=== PATIENT | male | born 1950 | race Caucasian/White ===

== ENCOUNTER 2022-07-04 10:41 | Inpatient (IN) | payer OTHER, BC ==
[2022-07-01 13:57] LABS: Absolute Lymphocytes (CBC) 1.6 K/uL (0.7-4.9); Hematocrit 45.7 % (39.6-49.0); Lymphocytes % 25.2 % (15.3-44.8); MCV 97.1 fL (80-100); MPV 8.7 fL (7.6-11.3); RBC Red Blood Cell Count 4.71 M/uL (4.33-5.43)
[2022-07-01 14:17] LABS: Protime INR 1.13
--- NOTE | 2022-07-01 14:18 | RAD REPORT ---
EXAM DESCRIPTION: Hannah Rey And Kristen (2 Views)07/01/2022 1:58 pm CLINICAL HISTORY: Preop cardiac catheterization COMPARISON: 2008 FINDINGS: The lungs appear clear of acute infiltrate. The heart is normal size IMPRESSION: No acute abnormalities displayed
[2022-07-01 14:19] LABS: Potassium 4.3 mmol/L (3.5-5.1)
[~2022-07-04 10:41] MED LIST: PANTOPRAZOLE 40MG TABLET PO SCH
[2022-07-04] MEDS ORDERED: NA CHLORIDE 0.9% 500 ML ONE (10:50)
[2022-07-04] MEDS ORDERED: FENTANYL CITR 100 MCG/2 ML ONE (10:55)
[2022-07-04] MEDS ORDERED: HEPA 1000U/500MLS 2,000 UNIT/1,000 ML BAG IV ONE (10:55)
[2022-07-04] MEDS ORDERED: LIDOCAINE 1% 20 ML MDV ONE (10:55)
[2022-07-04] MEDS ORDERED: ATROPINE SULF 1 MG/10 ML SYR IV ONE (10:56)
[2022-07-04] MEDS ORDERED: HEPARIN 10,000 UNIT/10 ML VIAL IV ONE (10:56)
[2022-07-04] MEDS ORDERED: HEPARIN 5000 UNIT/ML 1 ML VIAL ONE (10:56)
[2022-07-04] MEDS ORDERED: VERAPAMIL HCL 10 MG/4 ML VIAL IV ONE (10:56)
[2022-07-04] MEDS ORDERED: MIDAZOLAM HCL 2 MG/2 ML INJ ONE (10:56)
[2022-07-04] MEDS ORDERED: CLOPIDOGREL 75 MG TABLET ONE (12:18)
[2022-07-04] MEDS ORDERED: NITROGLYCERIN/D5W 50 MG/250 ML BTL IV ONE (12:45)
[2022-07-04] MEDS ORDERED: ASPIRIN 325 MG TAB ONE (12:56)
--- OUTSIDE RECORDS SUMMARY | 2022-07-04 15:43 | XMS REPORT | Continuity of Care Document ---
:1950 Author Organization [facility] t Address [address] [place] [address] Care Team Providers Name Role Phone LORRAINE RAY Primary Care Physician Unavailabl e LORRAINE RAY Attending Clinician Unavailable Problems Condition Condition Condition Status Onset Resolution Last Treating Co mments Source Name Details Category Date Date Treatment Clinician Date Thrombocyt Thrombocyt Disease [facility] [place] Pre-diabet Pre-diabet Disease Active [facility] [place] Hypertensi Hypertensi Disease Active [facility] [place] Depression Depression Disease Active [facility] [place] AAA AAA Disease Active [facility]abdominal [facility] aortic aortic 00:[facility]: Medical aneurysm) aneurysm) 00 [facility] er Obesity Obesity Disease Active [facility] [place] Fatigue Fatigue Disease Active [facility] [place] Immunity Immunity Disease [facility] testing testing [facility] 00 [place] Fatty Fatty Disease Active [facility] liver [facility] Allergies, Adverse Reactions, Alerts Allergy Allergy Status Severity Reaction(s) Onset Inactive Treating Comm ents Source Name Type Date Date Clinician NO KNOWN Allergy Active [facility] Family History Family Member Diagnosis Comments Start Date Stop Date Source Natural father Hypertension [facility] Natural mother Ovarian cancer [facility] Social History Social Habit Start Date Stop Date Quantity Comments Source Alcohol intake 2012-09-01 2012-09-[address] [facility] [address] [facility] 00:00:00 00:00:00 non-drinker of Medical Ce nter alcohol (finding) History of 1982-03-23 Current smoker [facility] tobacco use 00:00:00 [facility] Cent[facility] r Sex Assigned At [birth year] [employer] 00:00:00 00:00:00 Hospital Smoking Status Start Date Stop Date Source Former smoker [facility] Tobacco smoking consumption unknown [facility] Medications This patient has no known medications. Procedures This patient has no known procedures. Plan of Care Planned Activity Planned Date Details Comments Source Future Scheduled 2022-04-04 INFLUENZA VACCINE Method [facility] Test 04:10:04 [code = INFLUENZA VACCINE] Future Scheduled 2022-04-04 Hepatitis C screening [facility] Test 04:10:04 (procedure) [code = [id number]] Future Scheduled 2022-04-04 COLONOSCOPY SCREENING [facility] Test 04:10:04 [code = COLONOSCOPY SCREENING] Future Scheduled 2022-04-04 SHINGLES VACCINES (1 Met [facility] Test 04:10:04 of 2) [code = SHINGLES VACCINES (1 of 2)] Future Scheduled 2022-04-04 HEPATITIS B VACCINES Met [facility] Test 04:10:04 (1 of 3 - Risk 3-dose series) [code = HEPATITIS B VACCINES (1 of 3 - Risk 3-dose series)] Future Scheduled 2022-04-04 65+ PNEUMOCOCCAL Methodi [facility] Test 04:10:04 VACCINE (1 - PCV) [code = 65+ PNEUMOCOCCAL VACCINE (1 - PCV)] Future Scheduled 2022-04-04 COVID-19 VACCINE (3 - [facility] Test 04:10:04 Booster for Moderna series) [code = COVID-19 VACCINE (3 - Booster for Moderna series)] Encounters Start End Encounter Admission Attending Care Care Encounter Source Date/Time Date/Time Type Type Clinicians Facility Department ID 2021-04-19 2021-04-19 Outpatient [facility] [id number] [address] [place] [address] 00:00:00 00:00:00 LORRAINE [address] 2021-04-19 2021-04-19 Outpatient [facility] [id number] [address] 00:00:00 00:00:00 LORRAINE [address] Results This patient has no known results.
[2022-07-04] MEDS ORDERED: NITROGLYCERIN/D5W 50 MG/250 ML BTL IV SCH (16:47)
[2022-07-04] MEDS ORDERED: ACETAMINOPHEN 500 MG TAB PO PRN (16:54)
--- NOTE | 2022-07-04 18:35 | P.HP ---
Patient History Date of Service: 07/04/22 Reason for admission: CARDIAC CATH COMPLICATION History of Present Illness: PRETTY MOTA CAD DETECTED ON HEART SCAN WITH NO SYMPTOMS. HE HAD CATH TODAY BUT HAD SOME ISSUE WITH CARDIOVASCULAR STATUS NOT CLEAR BY WHAT RN EXPLAINED. DR. RICHARDSON WANTS TO HEPARANIZE HIM AND KEEP ON NTG DRIP UNTIL HE IS ABLE TO DO THE PROCEDURE AGAIN DAY AFTER TOMORROW. Allergies No Known Allergies Allergy (Verified 07/01/22 13:29) Review of Systems 10-point ROS is otherwise unremarkable General: Weakness Physical Examination - Vital Signs Blood Pressure: 109/55 Pulse: 75 Respirations: 14 Pulse Ox (%): 97 - Physical Exam General: Oriented x3, Mild distress, Obese HEENT: Atraumatic, PERRLA, Mucous membr. moist/pink, EOMI, Sclerae nonicteric Neck: Supple, 2+ carotid pulse no bruit, No LAD, Without JVD or thyroid abnormality Respiratory: Clear to auscultation bilaterally, Normal air movement Cardiovascular: Regular rate/rhythm, Normal S1 S2 Gastrointestinal: Normal bowel sounds, No tenderness Musculoskeletal: No tenderness Integumentary: No rashes Neurological: Normal gait, Normal speech, Normal strength at 5/5 x4 extr, Normal tone, Normal affect Lymphatics: No axilla or inguinal lymphadenopathy Assessment and Plan - Problems (Diagnosis) (1) Coronary artery disease Current Visit: Yes Status: Acute Plan: ABOVE PLAN PER . DR. DUMONT - Advance Directives Does patient have a Living Will: No Does patient have a Durable POA for Healthcare: No
[2022-07-04] MEDS: HEPARIN/D5W 25,000 UNIT/500 ML BAG IV PRN (19:39)
[2022-07-04] MEDS: ATORVASTATIN 40 MG TAB PO SCH (21:43)
[2022-07-05 04:24] LABS: Absolute Lymphocytes (CBC) 1.6 K/uL (0.7-4.9); Hematocrit 41.7 % (39.6-49.0); Lymphocytes % 26.3 % (15.3-44.8); MCV 97.2 fL (80-100); RBC Red Blood Cell Count 4.29 M/uL (4.33-5.43)
[2022-07-05 04:35] LABS: Potassium 3.7 mmol/L (3.5-5.1)
[2022-07-05] MEDS: ASPIRIN 81 MG CHEWABLE TABLET PO SCH (08:09)
[2022-07-05] MEDS: CLOPIDOGREL 75 MG TABLET PO SCH (08:09)
--- NOTE | 2022-07-05 12:02 | PN ---
Date of Progress Note: 07/05/2022 Subjective: Seen by bedside. No chest pain. Doing well. Review of Systems: No chest pain, shortness of breath, orthopnea, cough. No nausea, vomiting, diarrhea. No abdominal p ain. No dysuria, polyuria, or urinary urgency. No skin rash or headache. All other systems reviewe d and they were negative. Physical Examination: Vital Signs: Reviewed. Head and Neck: Pupils are equal, reactive to light. Intact eye movements. No JVD. No cervical lym phadenopathy. Neck is supple. Thyroid is not enlarged. Lungs: Clear to auscultation bilaterally. No rhonchi, wheezing, or crackles. No accessory muscle u se. Heart: Regular rate and rhythm. No extra sounds. Abdomen: Soft, nontender. Bowel sounds positive. No organomegaly. No masses or hernia. No rigidi ty or rebound. Extremities: No edema, clubbing, or cyanosis. Intact pulses. Skin: No rash. Neurologic: Alert, awake, oriented x3. No acute focal deficits appreciated. Investigation: Labs were reviewed. Assessment And Recommendations: 1.Severe coronary artery disease, status post successful percutaneous coronary intervention of the m id RCA. Plan for staged percutaneous coronary intervention of severe distal RCA on . Meanwh ile, continue IV heparin, baby aspirin and Plavix. 2.Dyslipidemia. Continue statins. SR/MODL Voice ID: [id number] Report ID: [id number]
--- NOTE | 2022-07-05 14:53 | CON ---
Date of Consultation: 07/04/2022 History Of Present Illness: This is a 71-year-old male, status post coronary angiogram and PCI of mi d RCA. He has severe distal RCA stenosis, heavily calcified. They could not cross yesterday and pro cedure was stopped due to the diminished blood flow in the coronary artery to allow some healing afte r stenting the proximal portion of the RCA. Planning to revisit in 48-72 hours. Denies having any c hest pain. No nausea, vomiting, diarrhea. No dysuria, polyuria, or urinary urgency. All other syst ems reviewed and they were all negative. Past Medical History: Coronary artery disease, hypertension, dyslipidemia. Medications: Refer to reconciliation sheet for detailed list. Allergies: NO KNOWN DRUG ALLERGIES. Family History: No premature coronary artery disease or cancer. Social History: Does not smoke or drink. Does not use any drugs. Review of Systems: All systems reviewed and they were negative except what mentioned in HPI. Physical Examination: Vital Signs: Reviewed. Head and Neck: Pupils are equal, reactive to light. Intact eye movements. No JVD. No cervical lym phadenopathy. Neck is supple. Thyroid is not enlarged. Lungs: Clear to auscultation bilaterally. No rhonchi, wheezing, or crackles. No accessory muscle u se. Heart: Regular rate and rhythm. No extra sounds. Abdomen: Soft, nontender. Bowel sounds positive. No organomegaly. No masses or hernia. No rigidi ty or rebound. Extremities: No edema, clubbing, or cyanosis. Intact pulses. Skin: No rash. Neurologic: Alert, awake, oriented x3. No acute focal deficits appreciated. Investigations: BUN 14, creatinine 1.4, hemoglobin 15.8. Assessment And Recommendations: 1.Coronary artery disease, status post PCI of mid RCA. Needs staged PCI of distal RCA, should be do ne on Monday or . At this point, continue IV heparin, baby aspirin and Plavix daily. 2.Dyslipidemia. Continue statin. 3.Hypertension. Blood pressure is controlled. SR/MODL Voice ID: [id number] Report ID: [id number]
--- NOTE | 2022-07-05 16:29 | OP ---
Date of Procedure: 07/04/2022 Surgeon: AURROA DUMONT Procedures Performed: 1.Selective coronary angiogram. 2.Left heart catheterization. 3.PCI of severe mid RCA stenosis, used 3.5 x 20 mm Synergy drug-eluting stent. Indication: Chest pain with abnormal stress test. Access: Right radial artery 6-Czech closed with TR band. Complications: None. Bleeding: Less than 10 mL. Anesthesia: Total sedation time was 50 minutes. Used fentanyl and Versed. Description Of Procedure: After risks, benefits, alternatives were explained, the patient agreed to procedure and signed informed consent. The patient was brought into the cardiac catheterization labo [facility], prepped and draped in the usual sterile fashion. Then, I accessed right radial artery using pediatric micropuncture kit, placed 6-Czech Slender sheath, took 5-Czech [place] 4.0 catheter into th e aortic root, engaged left main and right coronary artery, took standard views. Catheter was pushed over the wire into the LV, measured the LVEDP and pullback did not record any gradient and we gave s ystemic heparin to assure ACT level above , gave 600 mg of Plavix and 325 aspirin and then took a 6-Czech JR4 guide into the aortic root, engaged the RCA, took a Run-Through wire into the RCA , placed it distally, tried to get the balloons through the distal lesion and could not pass it, but the mid lesion was successfully dilated and placed a stent. ARYAN-2 flow was at the end of the proced ure, which was the same to the time prior to the procedure. At this time, I decided to stop, allow 2 4-48 hours on IV heparin and then we will re-attempt the PCI of distal RCA, so I removed the wire and the guide and the sheath, placed TR band with good hemostasis. Findings: 1.Left main is normal. 2.LAD; large vessel with proximal diffuse 40% stenosis. Diagonal 1 branch appears normal and then m id LAD has 40% to 50% stenosis, then distally diffuse 20% to 30% stenosis. 3.Left circumflex; proximal 40% stenosis and OM1 branch has proximal 50% stenosis. 4.RCA; large and dominant with proximal 40% stenosis, mid 80% stenosis, status post successful PCI, used 3.5 x 20 mm Synergy drug-eluting stent. Distally, it is 90% to 95% stenosis, heavily calcified. LVEDP is elevated at 40 mmHg. Conclusion: 1.Severe RCA stenosis, status post successful PCI of the mid RCA. Plan for staged PCI of distal RCA in 2 to 3 days. 2.Moderate coronary artery disease elsewhere. 3.Slightly elevated LVEDP. Recommendation: Admit, IV heparin, aspirin, Plavix, and revisit in 2 days. SR/MODL Voice ID: [id number] Report ID: [id number]
--- NOTE | 2022-07-05 17:32 | PN ---
Subjective: Mr. Coleman is doing well. Denies any chest pain, nausea, vomiting. Objective: General: He is a morbidly obese gentleman. Chest: Clear. Heart: Regular. Abdomen: No guarding, no rebound, rigidity. Vital Signs: Reviewed. Assessment And Plan: Coronary artery disease, multivessel disease. He had no symptoms. His heart s can score was high, which is why he was sent to caterer helper. It turns out he had a complication dur ing cardiac cath with cardiovascular event, possibly hypotension, which is why he is in ICU for stabi lization and now he will be going to the floor and , he will get angiogram again for stent placement. DENA/SNOWL Voice ID: [id number] Report ID: [id number]
[2022-07-05] MEDS: HEPARIN/D5W 25,000 UNIT/500 ML BAG IV PRN (17:57)
[2022-07-05] MEDS: ATORVASTATIN 40 MG TAB PO SCH (20:26)
[2022-07-06] MEDS: CLOPIDOGREL 75 MG TABLET PO SCH (08:08)
[2022-07-06] MEDS: PANTOPRAZOLE 40MG TABLET PO SCH (08:08)
[2022-07-06] MEDS: ASPIRIN 81 MG CHEWABLE TABLET PO SCH (08:08)
[2022-07-06] MEDS ORDERED: ATORVASTATIN 40 MG TAB PO SCH (09:00)
[2022-07-06] MEDS: HEPARIN/D5W 25,000 UNIT/500 ML BAG IV PRN (20:11)
[2022-07-06] MEDS: ATORVASTATIN 40 MG TAB PO SCH (20:11)
--- NOTE | 2022-07-06 20:31 | P.PN ---
Subjective Date of Service: 07/06/22 Chief Complaint: CARDIAC CATH COMPLICATION Subjective: Improving STABLE. NO PAIN, NO FEVER. NO DYSPNEA. Physical Examination - Vital Signs Temperature: 97.4 F Blood Pressure: 120/73 Pulse: 74 Respirations: 14 Pulse Ox (%): 96 - Physical Exam General: In no apparent distress, Obese HEENT: Atraumatic, PERRLA, EOMI Neck: Supple, JVD not distended Respiratory: Clear to auscultation bilaterally, Normal air movement Cardiovascular: Regular rate/rhythm, Normal S1 S2 Gastrointestinal: Normal bowel sounds, No tenderness Musculoskeletal: No tenderness Integumentary: No rashes Neurological: Normal speech, Normal tone, Normal affect Lymphatics: No axilla or inguinal lymphadenopathy - Studies Laboratory Data (last 24 hrs) 07/06/22 05:12: APTT 69.7 H Medications List Reviewed: Yes Assessment And Plan - Current Problems (Diagnosis) (1) Coronary artery disease Current Visit: Yes Status: Acute Plan: ABOVE PLAN PER . DR. DUMONT CATH IN AM STENT POSSIBLE. RCA.
[2022-07-07] MEDS: ASPIRIN 81 MG CHEWABLE TABLET PO SCH (06:15)
[2022-07-07] MEDS: CLOPIDOGREL 75 MG TABLET PO SCH (06:15)
[2022-07-07] MEDS: PANTOPRAZOLE 40MG TABLET PO SCH (09:00)
[2022-07-07] MEDS ORDERED: NA CHLORIDE 0.9% 500 ML ONE (10:58)
[2022-07-07] MEDS ORDERED: LIDOCAINE 1% 20 ML MDV ONE (11:27)
[2022-07-07] MEDS ORDERED: HEPA 1000U/500MLS 2,000 UNIT/1,000 ML BAG IV ONE (11:27)
[2022-07-07] MEDS ORDERED: FENTANYL CITR 100 MCG/2 ML ONE (11:28)
[2022-07-07] MEDS ORDERED: MIDAZOLAM HCL 2 MG/2 ML INJ ONE (11:28)
[2022-07-07] MEDS ORDERED: HEPARIN 5000 UNIT/ML 1 ML VIAL ONE (11:28)
[2022-07-07] MEDS ORDERED: HEPARIN 10,000 UNIT/10 ML VIAL IV ONE (11:29)
[2022-07-07] MEDS ORDERED: VERAPAMIL HCL 10 MG/4 ML VIAL IV ONE (11:29)
[2022-07-07] MEDS: NA CHLORIDE 0.9% 1,000 ML IV SCH (16:43)
[2022-07-07 18:12] VITALS: BMI 39.1
[2022-07-07] MEDS: ATORVASTATIN 40 MG TAB PO SCH (21:12)
--- NOTE | 2022-07-07 21:20 | P.PN ---
Subjective Date of Service: 07/07/22 Chief Complaint: CARDIAC CATH COMPLICATION Subjective: Improving STABLE. NO PAIN, NO FEVER. NO DYSPNEA. DR. DUMONT CALLED. HE COULD PUT IN ONE STENT BUT HAS A VERY CALCIFIED PLAQUE AND NEEDS ATHERCTOMY THAT HE WILL DO IN [place]. DC HOME IN AM. Physical Examination - Vital Signs Temperature: 97.5 F Blood Pressure: 133/66 Pulse: 78 Respirations: 18 Pulse Ox (%): 96 - Physical Exam General: Alert, In no apparent distress, Obese HEENT: Atraumatic, PERRLA, EOMI Neck: Supple, JVD not distended Respiratory: Clear to auscultation bilaterally, Normal air movement Cardiovascular: Regular rate/rhythm, Normal S1 S2 Gastrointestinal: Normal bowel sounds, No tenderness Musculoskeletal: No tenderness Integumentary: No rashes Neurological: Normal speech, Normal tone, Normal affect Lymphatics: No axilla or inguinal lymphadenopathy - Studies Laboratory Data (last 24 hrs) 07/07/22 04:32: APTT 60.4 H Medications List Reviewed: Yes Assessment And Plan - Current Problems (Diagnosis) (1) Coronary artery disease Current Visit: Yes Status: Acute Plan: ABOVE PLAN PER . DR. DUMONT CATH IN AM STENT POSSIBLE. RCA. ABOVE.
[2022-07-08] MEDS: NA CHLORIDE 0.9% 1,000 ML IV SCH (05:33)
[2022-07-08] MEDS: CLOPIDOGREL 75 MG TABLET PO SCH (07:33)
[2022-07-08] MEDS: ASPIRIN 81 MG CHEWABLE TABLET PO SCH (07:33)
[2022-07-08] MEDS: PANTOPRAZOLE 40MG TABLET PO SCH (07:33)
[2022-07-08 10:48] VITALS: BP 136/62; TEMP 98.5; O2SAT 95
--- NOTE | 2022-07-08 15:32 | P.DS ---
Admission Date: 07/04/22 Discharge Date: 07/08/22 Disposition: ROUTINE DISCHARGE Discharge Condition: FAIR Reason for Admission: CARDIAC CATH COMPLICATION - Problems (1) Coronary artery disease Status: Acute Brief History of Present Illness: PRETTY MOTA CAD DETECTED ON HEART SCAN WITH NO SYMPTOMS. HE HAD CATH TODAY BUT HAD SOME ISSUE WITH CARDIOVASCULAR STATUS NOT CLEAR BY WHAT RN EXPLAINED. DR. RICHARDSON WANTS TO HEPARANIZE HIM AND KEEP ON NTG DRIP UNTIL HE IS ABLE TO DO THE PROCEDURE AGAIN DAY AFTER TOMORROW. Hospital Course: pretty has cad with rca stenosis and heavy calcification that will need atherectomy will be done by Dr. flores. He is stable to go home. Vital Signs/Physical Exam: Temp Pulse Resp BP Pulse Ox 98.5 F 80 18 136/62 95 07/08/22 08:00 07/08/22 08:00 07/08/22 08:00 07/08/22 08:00 07/08/22 08:00 Laboratory Data at Discharge: WBC 6.00 K/uL (4.3-10.9) 07/05/22 03:49 Hgb 14.5 g/dL (13.6-17.9) 07/05/22 03:49 Hct 41.7 % (39.6-49.0) 07/05/22 03:49 Plt Count 96 K/uL (152-406) L 07/05/22 03:49 PT 12.4 SECONDS (9.5-12.5) 07/01/22 13:45 INR 1.13 07/01/22 13:45 APTT 60.4 SECONDS (24.3-36.9) H 07/07/22 04:32 Sodium 142 mmol/L (136-145) 07/05/22 03:49 Potassium 3.7 mmol/L (3.5-5.1) 07/05/22 03:49 BUN 12 mg/dL (7-18) 07/05/22 03:49 Creatinine 0.93 mg/dL (0.70-1.30) 07/05/22 03:49 Glucose 153 mg/dL (74-106) H 07/05/22 03:49 Triglycerides 78 mg/dL (<150) 07/05/22 03:49 Cholesterol 137 mg/dL (<200) 07/05/22 03:49 HDL Cholesterol 48 mg/dL (40-60) 07/05/22 03:49 Cholesterol/HDL Ratio 2.85 07/05/22 03:49 Home Medications: Atorvastatin Calcium 40 mg PO DAILY 07/05/22 Pantoprazole [Protonix Tab*] 40 mg PO DAILY 07/05/22 lisinopriL [Lisinopril] 20 mg PO DAILY 07/05/22 Aspirin Chewable [Aspirin Chewable*] 81 mg PO DAILY tab.chew 07/08/22 Clopidogrel Bisulfate [Plavix] 75 mg PO DAILY 90 Days #90 07/08/22 New Medications: Clopidogrel Bisulfate [Plavix] 75 mg PO DAILY 90 Days #90 Followup: Parth Lozano MD [Primary Care Provider] - 1-2 Weeks (call to schedule an appointment) Bob Flores MD [ACTIVE - CAN ADMIT] - 1 Week (call tos chedule an appointment.)
== END 2022-07-08 09:03 | disposition home or self-care (01) | DRG 247 ==
LOC: PRE 10:41 → 3RD-ICU 12:50 → 4TH 07-05 13:34
PROVIDERS: ADMIT Internal Medicine; ATTEND Internal Medicine
PROC: 027034Z Dilation of Coronary Artery, One Artery with Drug-eluting Intraluminal Device, Percutaneous Approach (ICD-10-PCS; principal; 2022-07-04)
PROC: 4A023N7 Measurement of Cardiac Sampling and Pressure, Left Heart, Percutaneous Approach (ICD-10-PCS; 2022-07-04)
PROC: B2011ZZ Plain Radiography of Multiple Coronary Arteries using Low Osmolar Contrast (ICD-10-PCS; 2022-07-04)
DX: I25.10 Atherosclerotic heart disease of native coronary artery without angina pectoris (principal); E78.5 Hyperlipidemia, unspecified; I10 Essential (primary) hypertension; E66.01 Morbid (severe) obesity due to excess calories; Z68.39 Body mass index [BMI] 39.0-39.9, adult
CPT/HCPCS: 36415; 71046; 76937; 80048; 80061; 85025; 85347; 85610; 85730; 92920; 93458; C1725; C1893; C9600; J0461; J1644; J2001; J2250; J3010; J7030; J7040; Q9967

== ENCOUNTER 2024-07-12 03:02 | Emergency (ER) | payer OTHER, BC ==
[2024-07-12 03:44] LABS: Absolute Monocytes 1.7 K/uL (0.1-1.3); Absolute Neutrophil 12.8 K/uL (1.8-8.0); Basophils % 0.1 % (0-1.3); Hematocrit 36.7 % (39.6-49.0); Hemoglobin 12.5 g/dL (13.6-17.9); Lymphocytes % 6.4 % (15.3-44.8); MCH 34.9 pg (27.0-35.0); MCHC 34.2 g/dL (32.0-36.0); MPV 8.9 fL (7.6-11.3); Monocytes % 11.2 % (3.3-12.3); Neutrophils % 82.3 % (41.7-73.7); Platelets 152 thou/uL (152-406); Red Cell Distribution Width 14.6 % (12.1-15.2)
[2024-07-12] MEDS ORDERED: NA CHLORIDE 0.9% 1,000 ML ONE (04:04)
[2024-07-12 04:05] LABS: PT Prothrombin Time 15.6 SECONDS (9.4-12.5); Protime INR 1.49
[2024-07-12 04:11] LABS: Albumin 2.3 g/dL (3.4-5.0); Albumin/Globulin Ratio 0.8 (1.1-1.8); Anion Gap 8.4 mEq/L (5.0-15.0); Bilirubin Direct 0.8 mg/dL (0-0.2); Bilirubin Total 1.8 mg/dL (0.2-1.0); Magnesium 1.9 mg/dL (1.6-2.4); Potassium 4.4 mEq/L (3.5-5.1); Protein, Total 5.3 g/dL (6.4-8.2); Troponin High Sensitivity 7.8 pg/mL (<58.9)
[2024-07-12 04:41] LABS: C-Reactive Protein < 2.90 mg/L (<3.00)
--- NOTE | 2024-07-12 05:34 | RAD REPORT ---
EXAM DESCRIPTION: Chest Single View CLINICAL HISTORY: syncope COMPARISON: None TECHNIQUE: Single AP view of the chest. FINDINGS: Lung volumes adequate. Cardiac silhouette is normal in size. No pneumothorax. No large pleural effusion. No focal consolidation. No acute bony finding. IMPRESSION: No evidence of acute cardiopulmonary disease. Electronically signed by: Nancy Mccracken MD 07/12/2024 04:31 AM [employer] Z9 Due to temporary technical issues with the PACS/IntelliBatt reporting system, reports are being andie d by the in-house radiologist without review as a courtesy to ensure prompt reporting the interpreting radiologist is fully responsible for the content of the report. Transcribed Date/Time: 07/12/2024 5:34 AM
--- NOTE | 2024-07-12 05:39 | RAD REPORT ---
ADDENDUM #1 THIS REPORT CONTAINS FINDINGS THAT MAY BE CRITICAL TO PATIENT CARE: The findings were verbally discus sed via telephone conference with Dr. Yg Costa 5:30 AM central time July 12, 2024. The results were acknowledged and understood. Electronically signed by: Stephanie Bey MD 07/12/2024 05:34 AM [facility] V2 End of Addendum EXAM: CT Chest, Abdomen and Pelvis Without Intravenous Contrast CLINICAL HISTORY: The patient is 73 years old and is Male; Left chest wall pain. TECHNIQUE: Axial computed tomography images of the chest, abdomen and pelvis without intravenous co ntrast. Sagittal and coronal reformatted images were created and reviewed. This CT exam was performed using one or more of the following dose reduction techniques: automated exposure control, adjustment of the mA and/or kV according to patient size, and/or use of iterative reconstruction technique. COMPARISON: XR Chest 07/12/2024, 3:34:03 AM and US Abdomen 03/13/2023. FINDINGS: CHEST: Lungs: Unremarkable. No mass. No consolidation or ground glass opacities. Pleural space: Unremarkable. No significant effusion. No pneumothorax. Heart: Unremarkable. No cardiomegaly. No significant pericardial effusion. No significant c oronary artery calcifications. ABDOMEN: Liver: Scattered hypodense lesions in the liver too small to accurately characterize, largest 7 m m. Gallbladder and bile ducts: Cholecystectomy without biliary dilatation. Pancreas: Unremarkable. No ductal dilation. Spleen: Hyperdense fluid adjacent adjacent to the spleen highly suspicious for splenic injury/blo od. Adrenals: Unremarkable. No mass. Kidneys and ureters: Punctate left nephrolithiasis. No hydronephrosis. Stomach and bowel: Unremarkable. No obstruction. No mucosal thickening. PELVIS: Appendix: No findings to suggest acute appendicitis. Bladder: Unremarkable. No stones. Reproductive: Enlarged prostate gland. CHEST, ABDOMEN and PELVIS: Intraperitoneal space: Perihepatic free fluid. Free fluid in the bilateral paracolic gutters extending into the pelvis. No free air. Bones/joints: Old bilateral rib fractures. No definite acute fracture visualized. Old L1 compression fracture. Mid thoracic marginal and bridging osteophytes. No traumatic mal alignment. Bilateral SI joint ankylosis. Degenerative changes in the hips. No acute fracture in the pelvis or proximal femora. No disl ocation. No acute sternal fracture. Soft tissues: Unremarkable. Vasculature: Unremarkable. No aortic aneurysm. Lymph nodes: Unremarkable. No enlarged lymph nodes. IMPRESSION: 1. Hyperdense fluid adjacent adjacent to the spleen highly suspicious for splenic injury/blood. IV contrast CT abdomen and pelvis follow-up recommended. 2. No definite acute intrathoracic injury. 3. Additional non-emergent findings as above. Electronically signed by: Stephanie Bey MD 07/12/2024 05:29 AM [facility] V2 Due to temporary technical issues with the PACS/Options Away reporting system, reports are being andie d by the in-house radiologist without review as a courtesy to ensure prompt reporting the interpreting radiologist is fully responsible for the content of the report. Transcribed Date/Time: 07/12/2024 5:38 AM
--- NOTE | 2024-07-12 05:39 | RAD REPORT ---
EXAM: CT Head and Cervical Spine Without Intravenous Contrast CLINICAL HISTORY: The patient is 73 years old and is Male; Traumatic fall , syncope. TECHNIQUE: Axial computed tomography images of the head/brain and cervical spine without intravenou s contrast. Sagittal and coronal reformatted images were created and reviewed. This CT exam was performed using one or more of the following dose reduction techniques: automated exposure control, adjustment of the mA and/or kV according to patient size, and/or use of iterative reconstruction technique. COMPARISON: No relevant prior studies available. FINDINGS: Brain: Unremarkable. No hemorrhage. No significant white matter disease. No edema. Ventricles: Unremarkable. No ventriculomegaly. Skull: No acute fracture. Sinuses: Unremarkable as visualized. No acute sinusitis. Mastoid air cells: Unremarkable as visualized. No mastoid fluid. Vertebrae: No acute cervical spine fracture visualized. No traumatic malalignment. Mild degenerative facet arthropathy. Discs/spinal canal/neural foramina: No acute findings. No spinal canal stenosis. Soft tissues: Unremarkable. Pleural space: No apical pneumothorax. IMPRESSION: 1. No intracranial hemorrhage. No acute skull fracture. 2. No acute cervical spine fracture visualized. Electronically signed by: Stephanie Bey MD 07/12/2024 05:16 AM [facility] V2 Due to temporary technical issues with the PACS/brettapproved reporting system, reports are being andie d by the in-house radiologist without review as a courtesy to ensure prompt reporting the interpreting radiologist is fully responsible for the content of the report. Transcribed Date/Time: 07/12/2024 5:39 AM
--- NOTE | 2024-07-12 06:14 | EDPHYS ---
Physician Documentation [facility] Name: Raul Coleman Age: 73 yrs Sex: Male : 1950 Arrival Date: 07/12/2024 Time: 03:02 Bed 7 Private MD: ED Physician Yg Costa HPI: 07/12 03:12 This 73 yrs old Male presents to ER via Unassigned with complaints of Syncope.sp4 06:09 73-year-old male with past medical history of fatty liver disease and also coronary sp4 artery disease with 5 stents on Plavix, hypertensive disorder, chronic back pain, hyperlipidemia. Patient presents with EMS for complaint of acute syncopal episode at home. Patient states yesterday he fell onto the left side developing left flank pain. This morning patient syncopized at home was found laying on the floor.. 06:14 Patient takes Plavix. sp4 06:[address] Lozano, Cloth Brushing And Sueding Supervisor Dr. Flores . sp4 Historical: - Allergies: 03:16 No Known Allergies; dd2 - PMHx: 03:16 CAD; Hypertensive disorder; Chronic back pain; HLD; dd2 - PSHx: 03:16 CARDIAC STENTS X5; dd2 - Immunization history:: Adult Immunizations up to date. - Infectious Disease History:: Denies. - Social history:: Smoking status: Patient denies any tobacco usage or history of. - Family history:: not pertinent. ROS: 06:10 Constitutional: Negative for fever, chills, and weight loss, sp4 06:10 All other systems are negative, Exam: 06:10 Constitutional: This is a well developed, well nourished patient who is awake, alert, sp4 and in no acute distress. Head/Face: Normocephalic, atraumatic. Eyes: Pupils equal round and reactive to light, extra-ocular motions intact. Lids and lashes normal. Conjunctiva and sclera are not injected. Cornea within normal limits. Periorbital areas with no swelling, redness, or edema. ENT: Nares patent. No nasal discharge, no septal abnormalities noted. Tympanic membranes are normal and external auditory canals are clear. Oropharynx with no redness, swelling, or masses, exudates, or evidence of obstruction, uvula midline. Mucous membranes moist. Neck: Trachea midline, no thyromegaly or masses palpated, and no cervical lymphadenopathy. Supple, full range of motion without nuchal rigidity, or vertebral point tenderness. Chest/axilla: Normal chest wall appearance and motion. Nontender with no deformity. No lesions are appreciated. Cardiovascular: Regular rate and rhythm with a normal S1 and S2. No gallops, murmurs, or rubs. Normal PMI, no JVD. No pulse deficits. Respiratory: Lungs have equal breath sounds bilaterally, clear to auscultation and percussion. No rales, rhonchi or wheezes noted. No increased work of breathing, no retractions or nasal flaring. Abdomen/GI: Soft, with normal bowel sounds. No distension or tympany. No guarding or rebound. No evidence of tenderness throughout. Back: No spinal tenderness. No costovertebral tenderness. Skin: Warm, dry with normal turgor. Normal color with no rashes, no lesions, and no evidence of cellulitis. MS/ Extremity: Pulses equal, no cyanosis. Neurovascular intact. Full, normal range of motion. Neuro: Awake and alert, GCS 15, oriented to person, place, time, and situation. Cranial nerves II-XII grossly intact. Motor strength 5/5 in all extremities. Sensory grossly intact. Psych: Awake, alert, with orientation to person, place and time. Behavior, mood, and affect are within normal limits 06:10 ECG was reviewed by the Attending Physician. EKG 0 313 normal sinus rhythm rate 91, otherwise normal EKG. Vital Signs: 03:12 BP 143 / 72; Pulse 84; Resp 16; Temp 98.2; Pulse Ox 100% on R/A; Weight 110.68 kg (R); dd2 03:25 BP 119 / 80; Pulse 86; Resp 16; Pulse Ox 99% on R/A; dd2 04:30 BP 139 / 72; Pulse 78; Resp 17; Pulse Ox 100% on R/A; dd2 05:00 BP 128 / 69; Pulse 75; Resp 16; Pulse Ox 100% on R/A; dd2 06:00 BP 127 / 72; Pulse 80; Resp 17; Pulse Ox 100% on R/A; dd2 NIH Stroke Scale Scores: 03:12 NIHSS Score: 0 dd2 06:12 NIHSS Score: 0 sp4 Pretty Coma Score: 03:25 Eye Response: spontaneous(4). Motor Response: obeys commands(6). Verbal Response: dd2 oriented(5). Total: 15. 06:10 Eye Response: spontaneous(4). Motor Response: obeys commands(6). Verbal Response: sp4 oriented(5). Total: 15. MDM: 03:15 Medical Screening Exam initiated sp4 06:07 ED course: COMPARISON: XR Chest 07/12/2024, 3:34:03 AM and US Abdomen 03/13/2023. sp4 FINDINGS: CHEST: Lungs: Unremarkable. No mass. No consolidation or ground glass opacities. Pleural space: Unremarkable. No significant effusion. No pneumothorax. Heart: Unremarkable. No cardiomegaly. No significant pericardial effusion. No significant coronary artery calcifications. ABDOMEN: Liver: Scattered hypodense lesions in the liver too small to accurately characterize, largest 7 mm. Gallbladder and bile ducts: Cholecystectomy without biliary dilatation. Pancreas: Unremarkable. No ductal dilation. Spleen: Hyperdense fluid adjacent adjacent to the spleen highly suspicious for splenic injury/blood. Adrenals: Unremarkable. No mass. Kidneys and ureters: Punctate left nephrolithiasis. No hydronephrosis. Stomach and bowel: Unremarkable. No obstruction. No mucosal thickening. PELVIS: Appendix: No findings to suggest acute appendicitis. Bladder: Unremarkable. No stones. Reproductive: Enlarged prostate gland. CHEST, ABDOMEN and PELVIS: Intraperitoneal space: Perihepatic free fluid. Free fluid in the bilateral paracolic gutters extending into the pelvis. No free air. Bones/joints: Old bilateral rib fractures. No definite acute fracture visualized. Old L1 compression fracture. Mid thoracic marginal and bridging osteophytes. No traumatic malalignment. Bilateral SI joint ankylosis. Degenerative changes in the hips. No acute fracture in the pelvis or proximal femora. No dislocation. No acute sternal fracture. Soft tissues: Unremarkable. Vasculature: Unremarkable. No aortic aneurysm. Lymph nodes: Unremarkable. No enlarged lymph nodes. IMPRESSION: 1. Hyperdense fluid adjacent adjacent to the spleen highly suspicious for splenic injury/blood. IV contrast CT abdomen and pelvis follow-up recommended. 2. No definite acute intrathoracic injury. 3. Additional non-emergent findings as above. Electronically signed by: Stephanie Bey MD 07/12/2024 05:29 AM FITNESS LEADER RP. ED course: COMPARISON: No relevant prior studies available. FINDINGS: Brain: Unremarkable. No hemorrhage. No significant white matter disease. No edema. Ventricles: Unremarkable. No ventriculomegaly. Skull: No acute fracture. Sinuses: Unremarkable as visualized. No acute sinusitis. Mastoid air cells: Unremarkable as visualized. No mastoid fluid. Vertebrae: No acute cervical spine fracture visualized. No traumatic malalignment. Mild degenerative facet arthropathy. Discs/spinal canal/neural foramina: No acute findings. No spinal canal stenosis. Soft tissues: Unremarkable. Pleural space: No apical pneumothorax. IMPRESSION: 1. No intracranial hemorrhage. No acute skull fracture. 2. No acute cervical spine fracture visualized. . ED course: CLINICAL HISTORY: syncope COMPARISON: None TECHNIQUE: Single AP view of the chest. FINDINGS: Lung volumes adequate. Cardiac silhouette is normal in size. No pneumothorax. No large pleural effusion. No focal consolidation. No acute bony finding. IMPRESSION: No evidence of acute cardiopulmonary disease. . 06:11 Differential Diagnosis: aortic aneurysm, cardiac arrhythmia, cerebrovascular accident, sp4 drug effect, emotional response, GI bleed, idiopathic syncope, pseudo seizure. Data reviewed: vital signs, nurses notes, EMS record, old medical records, lab test result(s), EKG, radiologic studies, CT scan, plain films. Consideration of Admission/Observation Escalation of care including admission/observation considered. 07/12 03:13 Order name: Basic Metabolic Panel; Complete Time: 05:10 sp4 07/12 03:13 Order name: CBC with Diff; Complete Time: 05:10 sp4 07/12 03:13 Order name: LFT's; Complete Time: 05:10 sp4 07/12 03:13 Order name: Magnesium; Complete Time: 05:10 sp4 07/12 03:13 Order name: NT PRO-BNP; Complete Time: 05:10 sp4 07/12 03:13 Order name: PT-INR; Complete Time: 05:10 sp4 07/12 03:13 Order name: Troponin HS; Complete Time: 05:10 sp4 07/12 03:15 Order name: TSH; Complete Time: 05:10 sp4 07/12 03:15 Order name: CRP; Complete Time: 05:10 sp4 07/12 03:39 Order name: Glucose, Ancillary Testing; Complete Time: 05:10 EDLA 07/12 03:13 Order name: XRAY Chest (1 view); Complete Time: 05:46 sp4 07/12 03:14 Order name: CT Head C Spine; Complete Time: 05:46 sp4 07/12 03:14 Order name: CT Chest Abdomen Pelvis W/O Contrast; Complete Time: 05:46 sp4 07/12 03:13 Order name: Cardiac monitoring; Complete Time: 03: sp4 07/12 03:13 Order name: EKG - Nurse/Tech; Complete Time: 03: sp4 07/12 03:13 Order name: IV Saline Lock; Complete Time: 03: sp4 07/12 03:13 Order name: Labs collected and sent; Complete Time: : sp4 07/12 03:13 Order name: O2 Per Protocol; Complete Time: : sp4 07/12 03:13 Order name: O2 Sat Monitoring; Complete Time: : EC:13 Rate is 91 beats/min. Rhythm is regular, Normal Sinus Rhythm. QRS Candia is Normal. TN sp4 interval is normal. QRS interval is normal. QT interval is normal. No Q waves. T waves are Normal. No ST changes noted. Clinical impression: No evidence of ischemia. Interpreted by me. Reviewed by me. Administered Medications: 04:09 Drug: NS 0.9% IV 1000 ml IV at 125 ml/hr Per protocol; to be given as a bolus over 60 dd2 minutes Route: IV; Rate: 125 ml/hr; Site: right antecubital; 05:09 Follow up: Response: No adverse reaction; IV Status: Completed infusion; IV Intake: dd2 1000ml Point of Care Testing: Blood Glucose: 03:28 Blood Glucose: 220 mg/dL; dd2 Ranges: Critical Glucose Levels:Adult <50 mg/dl or >400 mg/dl <40 mg/dl or >180 mg/dl Disposition Summary: 07/12/24 06:14 Transfer Ordered Notes: Transfer Location: [facility]-System sp4 Reason: Higher level of care sp4 Condition: Stable sp4 Problem: new sp4 Symptoms: have improved sp4 Accepting Physician: [facility](07/12/24 07:15) ld1 Diagnosis - Acute splenic injury, acute perisplenic hematoma, new onset diabetes mellitus type sp4 2, hyperglycemia, ascites, transaminitis, hyperbilirubinemia, syncope and collapse Forms: - Medication Reconciliation Form sp4 - SBAR form sp4 NIH Stroke Scale - NIH Stroke Score Date: 07/12/2024 Time: 03:12 Total Score = 0 10. Dysarthria (speech clarity - read or repeat words) - 0(Normal) 11. Extinction and Inattention (visual/tactile/auditory/spatial/personal) - 0(No abnormality) 1a. Level of Consciousness (LOC) - 0(Alert) 1b. Level of Consciousness (LOC) (Month \T\ Age) - 0(Both) 1c. LOC Commands (Open \T\ Closes Eyes/Pie Chef) - 0(Both) 2. Best Gaze (Lateral Gaze Paresis) - 0(Normal) 3. Visual Field Loss - 0(No visual loss) 4. Facial Palsy - 0(Normal) 5a. Left Arm: Motor (10-second hold) - 0(No drift) 5b. Right Arm: Motor (10-second hold) - 0(No drift) 6a. Left Leg: Motor (5-second hold - always test supine) - 0(No drift) 6b. Right Leg: Motor (5-second hold - always test supine) - 0(No drift) 7. Limb Ataxia (finger/nose \T\ heel/ayon - test with eyes open) - 0(Absent) 8. Sensory Loss (pinprick arms/legs/face) - 0(Normal) 9. Best Language: Aphasia (description/naming/reading) - 0(No aphasia) Initials: dd2 NIH Stroke Scale - NIH Stroke Score Date: 07/12/2024 Time: 06:12 Total Score = 0 10. Dysarthria (speech clarity - read or repeat words) - 0(Normal) 11. Extinction and Inattention (visual/tactile/auditory/spatial/personal) - 0(No abnormality) 1a. Level of Consciousness (LOC) - 0(Alert) 1b. Level of Consciousness (LOC) (Month \T\ Age) - 0(Both) 1c. LOC Commands (Open \T\ Closes Eyes/Pie Chef) - 0(Both) 2. Best Gaze (Lateral Gaze Paresis) - 0(Normal) 3. Visual Field Loss - 0(No visual loss) 4. Facial Palsy - 0(Normal) 5a. Left Arm: Motor (10-second hold) - 0(No drift) 5b. Right Arm: Motor (10-second hold) - 0(No drift) 6a. Left Leg: Motor (5-second hold - always test supine) - 0(No drift) 6b. Right Leg: Motor (5-second hold - always test supine) - 0(No drift) 7. Limb Ataxia (finger/nose \T\ heel/ayon - test with eyes open) - 0(Absent) 8. Sensory Loss (pinprick arms/legs/face) - 0(Normal) 9. Best Language: Aphasia (description/naming/reading) - 0(No aphasia) Initials: sp4 Signatures: Dispatcher [employer] EDMS Buffy Canas RN RN ld1 Yg Costa MD MD sp4 GAURAV RUSH RN RN dd2 Corrections: (The following items were deleted from the chart) 03:14 03:14 Chest Single View+[id number] ordered. EDMS EDMS 07:15 06:14 [facility] sp4 ld1
--- NOTE | 2024-07-12 06:14 | ER ---
Nurse's Notes [facility] Name: Raul Coleman Age: 73 yrs Sex: Male : 1950 Arrival Date: 07/12/2024 Time: 03:02 Bed 7 Private MD: Diagnosis: Acute splenic injury, acute perisplenic hematoma, new onset diabetes mellitus type 2, hyperglycemia, ascites, transaminitis, hyperbilirubinemia, syncope and collapse Presentation: 07/12 03:12 Chief complaint: EMS states: TONED OUT FOR SYNCOPAL EPISODE. EMS REPORTS THAT PT STATED dd2 HE WAS GOING TO THE BATHROOM AND AT 0230 HEARD PT FALL AND WAS FOUND WITH A SHIRT IN HIS HAND SITTING IN THE FLOOR. Coronavirus screen: At this time, the client does not indicate any symptoms associated with coronavirus-19. Ebola Screen: No symptoms or risks identified at this time. Initial Sepsis Screen: Does the patient meet any 2 criteria? No. Patient's initial sepsis screen is negative. Does the patient have a suspected source of infection? No. Patient's initial sepsis screen is negative. Risk Assessment: Do you want to hurt yourself or someone else? Patient reports no desire to harm self or others. Onset of symptoms was July 12, 2024. 03:12 Method Of Arrival: EMS: [facility] dd2 03:12 Acuity: LUIS 3 dd2 03:16 Care prior to arrival: IV initiated. 20 GA, in the left hand, Glucose check: 230. dd2 Triage Assessment: 03:16 General: Appears in no apparent distress. uncomfortable, Behavior is calm, cooperative, dd2 appropriate for age. Pain: Complains of pain in LT RIBS Pain does not radiate. Pain currently is 4 out of 10 on a pain scale. EENT: No deficits noted. No signs and/or symptoms were reported regarding the EENT system. Neuro: Larsen Agitation-Sedation Scale (RASS): 0 - Alert and Calm Level of Consciousness is awake, alert, obeys commands, Oriented to person, place, time, situation, Appropriate for age Admitting Supervisor are equal bilaterally Moves all extremities. Speech is normal, Facial symmetry appears normal, Pupils are PERRLA, Intact Reports a syncopal episode. Cardiovascular: Denies chest pain, Patient's skin is warm and dry. Respiratory: Airway is patent Respiratory effort is even, unlabored, Respiratory pattern is regular, symmetrical, Breath sounds are clear bilaterally. GI: Abdomen is non-distended, obese, Abd is soft and non tender. GI: : No deficits noted. No signs and/or symptoms were reported regarding the genitourinary system. Derm: No deficits noted. No signs and/or symptoms reported regarding the dermatologic system. Musculoskeletal: No deficits noted. No signs and/or symptoms reported regarding the musculoskeletal system. Circulation, motion, and sensation intact. Range of motion: intact in all extremities. Historical: - Allergies: 03:16 No Known Allergies; dd2 - PMHx: 03:16 CAD; Hypertensive disorder; Chronic back pain; HLD; dd2 - PSHx: 03:16 CARDIAC STENTS X5; dd2 - Immunization history:: Adult Immunizations up to date. - Infectious Disease History:: Denies. - Social history:: Smoking status: Patient denies any tobacco usage or history of. - Family history:: not pertinent. Screenin:25 [facility] ED Fall Risk Assessment (Adult) History of falling in the last 3 months, dd2 including since admission Yes- physiologic fall (2 pts) Confusion or Disorientation No (0 pts) Intoxicated or Sedated No (0 pts) Impaired Gait No (0 pts) Mobility Assist Device Used No (0 pt) Altered Elimination No (0 pt) Score/Fall Risk Level 0 - 2 = Low Risk Oriented to surroundings, Maintained a safe environment, Educated pt \T\ family on fall prevention, incl call for assistance when getting out of bed, Assessed \T\ reinforced patient's understanding of fall precautions, Hourly rounding (assess needs \T\ fall precautionary measures) done. Abuse screen: Denies threats or abuse. Nutritional screening: No deficits noted. Tuberculosis screening: No symptoms or risk factors identified. Assessment: 03:25 Reassessment: SEE TRIAGE ASSESSMENT FOR FULL ASSESSMENT. dd2 06:48 Reassessment: REPORT CALLED TO [facility] ER. dd2 Vital Signs: 03:12 BP 143 / 72; Pulse 84; Resp 16; Temp 98.2; Pulse Ox 100% on R/A; Weight 110.68 kg (R); dd2 03:25 BP 119 / 80; Pulse 86; Resp 16; Pulse Ox 99% on R/A; dd2 04:30 BP 139 / 72; Pulse 78; Resp 17; Pulse Ox 100% on R/A; dd2 05:00 BP 128 / 69; Pulse 75; Resp 16; Pulse Ox 100% on R/A; dd2 06:00 BP 127 / 72; Pulse 80; Resp 17; Pulse Ox 100% on R/A; dd2 [place] Coma Score: 03:25 Eye Response: spontaneous(4). Motor Response: obeys commands(6). Verbal Response: dd2 oriented(5). Total: 15. 06:10 Eye Response: spontaneous(4). Motor Response: obeys commands(6). Verbal Response: sp4 oriented(5). Total: 15. NIH Stroke Scale Scores: 03:12 NIHSS Score: 0 dd2 06:12 NIHSS Score: 0 sp4 ED Course: 03:11 Patient arrived in ED. vk 03:11 GAURAV RUSH, RN is Primary Nurse. dd2 03:12 gY Costa MD is Attending Physician. sp4 03:16 Triage completed. dd2 03:16 Arm band placed on right wrist. dd2 03:25 Patient has correct armband on for positive identification. Bed in low position. Call dd2 light in reach. Side rails up X2. Client placed on continuous cardiac and pulse oximetry monitoring. NIBP monitoring applied. chef german on. Door closed. Noise minimized. Warm blanket given. Pillow given. Verbal reassurance given. 03:25 No provider procedures requiring assistance completed. EKG done, by ED staff, reviewed dd2 by Yg Costa MD. Maintain EMS IV. Dressing intact. Good blood return noted. Site clean \T\ dry. Gauge \T\ site: 20 G LT HAND. Flushed with 10 mL NS. Patient maintains SpO2 saturation greater than 95% on room air. 03:29 Basic Metabolic Panel Sent. dd2 03:29 CBC with Diff Sent. dd2 03:29 LFT's Sent. dd2 03:29 Magnesium Sent. dd2 03:29 NT PRO-BNP Sent. dd2 03:29 PT-INR Sent. dd2 03:29 Troponin HS Sent. dd2 03:29 Inserted saline lock: 20 gauge in right antecubital area, using aseptic technique. dd2 Blood collected. Flushed with 10 mL NS. 03:30 Initial lab(s) drawn, by ED staff, sent to lab. dd2 03:40 XRAY Chest (1 view) In Process Unspecified. EDMS 03:58 CT Head C Spine In Process Unspecified. EDMS 04:00 CT Chest Abdomen Pelvis W/O Contrast In Process Unspecified. EDMS 05:50 Initiated transfer with Johana at [facility]. rv1 06:00 Doc to Doc with Trauma at [facility]. rv1 06:07 administrative approval given by Johana Ann to Krista V / patient has been accepted eb to [facility] ED/ Dr. Barkley has accepted the patient in transfer/ report to be called to [phone]. 07:02 Patient transferred, IV remains in place. dd2 07:03 Provided Education on: TRANSFER EDUCATION. dd2 Administered Medications: 04:09 Drug: NS 0.9% IV 1000 ml IV at 125 ml/hr Per protocol; to be given as a bolus over 60 dd2 minutes Route: IV; Rate: 125 ml/hr; Site: right antecubital; 05:09 Follow up: Response: No adverse reaction; IV Status: Completed infusion; IV Intake: dd2 1000ml Medication: 03:25 VIS not applicable for this client. dd2 Point of Care Testing: Blood Glucose: 03:28 Blood Glucose: 220 mg/dL; dd2 Ranges: Intake: 05:09 IV: 1000ml; Total: 1000ml. dd2 Outcome: 06:14 ER care complete, transfer ordered by MD. de la torre 07:02 Transferred by ground EMS to [facility], Transfer form dd2 completed. 07:02 Condition: stable 07:02 Instructed on the need for transfer, Demonstrated understanding of instructions, 07:15 Patient left the ED. ld1 NIH Stroke Scale - NIH Stroke Score Date: 07/12/2024 Time: 03:12 Total Score = 0 10. Dysarthria (speech clarity - read or repeat words) - 0(Normal) 11. Extinction and Inattention (visual/tactile/auditory/spatial/personal) - 0(No abnormality) 1a. Level of Consciousness (LOC) - 0(Alert) 1b. Level of Consciousness (LOC) (Month \T\ Age) - 0(Both) 1c. LOC Commands (Open \T\ Closes Eyes/Garment Alteration Examiner) - 0(Both) 2. Best Gaze (Lateral Gaze Paresis) - 0(Normal) 3. Visual Field Loss - 0(No visual loss) 4. Facial Palsy - 0(Normal) 5a. Left Arm: Motor (10-second hold) - 0(No drift) 5b. Right Arm: Motor (10-second hold) - 0(No drift) 6a. Left Leg: Motor (5-second hold - always test supine) - 0(No drift) 6b. Right Leg: Motor (5-second hold - always test supine) - 0(No drift) 7. Limb Ataxia (finger/nose \T\ heel/ayon - test with eyes open) - 0(Absent) 8. Sensory Loss (pinprick arms/legs/face) - 0(Normal) 9. Best Language: Aphasia (description/naming/reading) - 0(No aphasia) Initials: dd2 NIH Stroke Scale - NIH Stroke Score Date: 07/12/2024 Time: 06:12 Total Score = 0 10. Dysarthria (speech clarity - read or repeat words) - 0(Normal) 11. Extinction and Inattention (visual/tactile/auditory/spatial/personal) - 0(No abnormality) 1a. Level of Consciousness (LOC) - 0(Alert) 1b. Level of Consciousness (LOC) (Month \T\ Age) - 0(Both) 1c. LOC Commands (Open \T\ Closes Eyes/Garment Alteration Examiner) - 0(Both) 2. Best Gaze (Lateral Gaze Paresis) - 0(Normal) 3. Visual Field Loss - 0(No visual loss) 4. Facial Palsy - 0(Normal) 5a. Left Arm: Motor (10-second hold) - 0(No drift) 5b. Right Arm: Motor (10-second hold) - 0(No drift) 6a. Left Leg: Motor (5-second hold - always test supine) - 0(No drift) 6b. Right Leg: Motor (5-second hold - always test supine) - 0(No drift) 7. Limb Ataxia (finger/nose \T\ heel/ayon - test with eyes open) - 0(Absent) 8. Sensory Loss (pinprick arms/legs/face) - 0(Normal) 9. Best Language: Aphasia (description/naming/reading) - 0(No aphasia) Initials: sp4 Signatures: Dispatcher [employer] EDMS Joycelyn Machado Lauren, CIRO RN ld1 Yahir, Micheline rv1 Yg Costa MD MD sp4 Kate Rodriguez DIANA, RN RN dd2
[2024-07-12 07:24] VITALS: TEMP 98.2
[2024-07-12 07:35] VITALS: O2SAT 100
[2024-07-12 07:45] VITALS: BP 128/69
== END 2024-07-12 07:15 | disposition short-term general hospital (02) ==
LOC: ER 03:02
DX: S36.00XA Unspecified injury of spleen, initial encounter (principal); S36.029A Unspecified contusion of spleen, initial encounter; R18.8 Other ascites; R74.01 Elevation of levels of liver transaminase levels; E80.6 Other disorders of bilirubin metabolism; E11.65 Type 2 diabetes mellitus with hyperglycemia; R55 Syncope and collapse; I10 Essential (primary) hypertension; Z95.818 Presence of other cardiac implants and grafts; Z79.01 Long term (current) use of anticoagulants
CPT/HCPCS: 93005; 85025; 80048; 36415; 83735; 85610; 82947; 80076; 84443; 84484; 83880; 86140; 70450; 71250; 72125; 74176; 71045; 96360; 99285; J7030

== ENCOUNTER 2024-10-10 13:18 | Observation (INO) | payer OTHER, BC ==
--- NOTE | 2024-10-10 16:21 | ER ---
Nurse's Notes [facility] Name: Raul Coleman Age: 73 yrs Sex: Male : 1950 Arrival Date: 10/10/2024 Time: 13:18 Bed Direct Admit Private MD: Diagnosis: Chest pain, unspecified ED Course: 10/10 13:20 Patient arrived in ED. sb4 13:20 Tonja Bledsoe PA-C is PHCP. sb4 13:20 Kartik Britton MD is Attending Physician. sb4 16:20 Parth Lozano MD is Hospitalizing Provider. jl7 Administered Medications: 13:24 CANCELLED (Physician Discretion): cathflo activase2 mg IV Thrombolytics once; into each sb4 catheter lumen, may repeat once Outcome: 16:20 Decision to Hospitalize by Provider. jl7 16:20 Patient left the ED. jl7 Signatures: Angel Christie RN RN jl7 Tonja Bledsoe PA-C PA-C sb4
[2024-10-10 17:36] LABS: PT Prothrombin Time 15.1 SECONDS (10-13.0); Protime INR 1.34
[2024-10-10 18:02] VITALS: O2SAT 100; BMI 35.6
[2024-10-10 18:05] LABS: Hemoglobin 13.4 g/dL (13.6-17.9); MCH 35.2 pg (27.0-35.0); MCHC 35.3 g/dL (32.0-36.0); MCV 99.7 fL (80-100); RBC Red Blood Cell Count 3.81 M/uL (4.33-5.43)
[2024-10-10 18:06] LABS: Absolute Eosinophils 0.1 K/uL (0-0.5); Absolute Lymphocytes (CBC) 1.3 K/uL (0.7-4.9); Absolute Monocytes 1.2 K/uL (0.1-1.3); Absolute Neutrophil 5.2 K/uL (1.8-8.0); Basophils % 0.6 % (0-1.3); Eosinophils % 0.9 % (0-4.4); Lymphocytes % 16.4 % (15.3-44.8); MPV 8.2 fL (7.6-11.3); Monocytes % 15.6 % (3.3-12.3); Neutrophils % 66.5 % (41.7-73.7); Nucleated RBC Absolute Count 0.1 (0-0); Nucleated Red Blood Cells % 0.8 % (0-0); Platelets 75 thou/uL (152-406); Red Cell Distribution Width 13.8 % (12.1-15.2)
[2024-10-10] MEDS ORDERED: HYDROMORPHONE HCL 1 MG/ML INJ IV PRN (18:25)
[2024-10-10 18:26] LABS: Albumin 2.7 g/dL (3.4-5.0); Albumin/Globulin Ratio 0.8 (1.1-1.8); Anion Gap 7.5 mEq/L (5.0-15.0); Bilirubin Direct 1.4 mg/dL (0-0.2); Bilirubin Indirect, Calculated 2.4 mg/dL (0.2-0.8); Bilirubin Total 3.8 mg/dL (0.2-1.0); Globulin 3.2 g/dL (2.3-3.5); Magnesium 1.9 mg/dL (1.6-2.4); Phosphorus 1.8 mg/dL (2.5-4.9); Potassium 3.5 mEq/L (3.5-5.1); Protein, Total 5.9 g/dL (6.4-8.2); Thyroid Stimulating Hormone 1.6 uIU/mL (0.358-3.740)
[2024-10-10 18:57] LABS: Blood Morphology Comment NOT SEEN (NOT SEEN); Platelet Estimate DECR; White Blood Cell Scan OK (OK)
[2024-10-10] MEDS ORDERED: DIPHENHYDRAMINE 25 MG TAB/CAP PO PRN (19:00)
[2024-10-10] MEDS ORDERED: LOPERAMIDE HCL 2 MG CAPSULE PO PRN (19:00)
[2024-10-10] MEDS ORDERED: ACETAMINOPHEN 325 MG TABLET PO PRN (19:00)
[2024-10-10] MEDS ORDERED: POLYETHYL GLY 3350 17 GM/DOSE PO PRN (19:00)
[2024-10-10] MEDS ORDERED: ONDANSETRON 4 MG/2 ML VIAL IV PRN (19:00)
[2024-10-10] MEDS ORDERED: ONDANSETRON 4 MG (ODT) TAB PO PRN (19:00)
[2024-10-10] MEDS: NACHLORIDE 0.45% 1,000 ML IV SCH (19:25)
--- NOTE | 2024-10-10 21:08 | RAD REPORT ---
EXAM: CT CHEST, ABDOMEN AND PELVIS WITHOUT CONTRAST CLINICAL INDICATION: Male, 73 years old. [facility] MAIN chest pain; swelling Right Lateral ribs TECHNIQUE: CT chest, abdomen and pelvis was performed, without IV contrast, as per department protoco l. Axial, sagittal and coronal reconstructions were obtained. One or more of the following dose reduction techniques were used: Automated exposure control, adjustment of the mA and/or kV according to the patient size, and/or iterative reconstruction. Unless otherwise specified, incidental findings do not require dedicated imaging follow-up. COMPARISON: 07/12/2024 FINDINGS: The lack of intravenous contrast limits the sensitivity of this exam for evaluation of solid visceral organs, vascular structures, and retroperitoneum. Chest: LOWER NECK/CHEST WALL: Visualized thyroid gland and soft tissues are normal. LUNGS AND AIRWAYS: Airways are clear. No evidence of airspace or interstitial process. No nodules. PLEURA: No pleural effusion. No pneumothorax. Hemidiaphragms are normally positioned. MEDIASTINUM AND LYMPH NODES: No mediastinal mass or fluid collection. Normal size mediastinal, hilar, and axillary lymph nodes. THORACIC AORTA: Normal caliber and configuration. PULMONARY ARTERIES: Normal caliber. HEART: Unremarkable. Abdomen/Pelvis LIVER: Normal in size. Diffusely nodular contour suggesting cirrhosis. Innumerable small hypoattenuat ing foci, could represent cysts or siderotic nodules, not well characterized. No dominant focal lesion. GALLBLADDER/BILE DUCTS: No biliary ductal dilatation. PANCREAS: No mass, ductal dilation, or maria luisa-pancreatic fluid. SPLEEN: Interval sequelae of splenic artery/branch coil embolization. Posterior subcapsular crescenti c hematoma measuring 6.7 x 2.8 cm in greatest axial dimensions. Spleen is overall somewhat bulky measuring 14.6 cm in greatest AP dimension. No suspicious other focal lesion. ADRENALS: Normal; no mass. KIDNEYS AND URETERS: Normal size and contour. No hydronephrosis. Nonobstructing left upper pole 3 mm calculus. Small hypoattenuating left renal cortical lesions, suggesting small cysts. GASTROINTESTINAL TRACT: Stomach is non-dilated. Small bowel has normal course and caliber. No colonic wall thickening or pericolonic inflammatory changes. PERITONEUM: No free fluid. LYMPH NODES: No lymphadenopathy. ABDOMINAL AORTA AND OTHER VESSELS: Normal caliber aorta and IVC. URINARY BLADDER: Normal contour. REPRODUCTIVE ORGANS: No pathologic process. MUSCULOSKELETAL: Left third through ninth healing rib fractures. Mild sclerosis along the anterolater al right seventh and eighth rib fractures, may represent healing changes as well. ADDITIONAL FINDINGS: Nonspecific mild mesenteric root fat stranding. Prostatomegaly. Diastases recti. IMPRESSION: Interval resolution of heterogeneity and hyperdensity adjacent to the spleen, with development of a h ypodense crescentic posterior subcapsular 6.6 cm collection, may relate to an organizing hematoma. Changes of splenic artery or branch embolization are now seen. Left third through ninth and right seventh and eighth healing rib fractures. Stigmata of liver cirrhosis again seen. Other incidental findings as above, including nonobstructing left upper renal pole 3 mm calculus.
[2024-10-11 05:21] LABS: Specific Gravity 1.014 (1.005-1.030); Urine Bilirubin NEGATIVE (Negative); Urine Blood Negative (Negative); Urine Clarity Clear (Clear); Urine Color Yellow (Yellow); Urine Glucose NEGATIVE (Negative); Urine Ketones NEGATIVE (Negative); Urine Microscopic Reflex YN NO UMIC; Urine Nitrite NEGATIVE (Negative); Urine Protein NEGATIVE (Negative); Urine Urobilinogen 2+ (Normal); Urine pH 6.5 (5.0-7.0)
[2024-10-11] MEDS: ASPIRIN 81 MG CHEWABLE TABLET PO SCH (07:36)
[2024-10-11] MEDS: CLOPIDOGREL 75 MG TABLET PO SCH (07:36)
[2024-10-11 08:51] VITALS: BP 142/75; TEMP 98
[2024-10-11] MEDS ORDERED: ENOXAPARIN 40 MG/0.4 ML SQ SCH (09:00)
--- NOTE | 2024-10-11 14:50 | P.DS ---
Admission Date: 10/10/24 Discharge Date: 10/11/24 Disposition: ROUTINE DISCHARGE Discharge Condition: [facility] Hospital Course: PRETTY DID A LOT OF WORK. 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 HE A MONTH AGO HAD FALLEND AND BROKE L RIBS WHILE PLAYING WITH [employer]. HE HAD LACERATION OF SPLEEN AT THAT TIME. I DID CT CHEST ABDOMEN AND PELVIS HE HAD FEVER. WE DID NOT FIND ANYTHING NEW. HE HAS ORGANIZING SPLENIC HEMATOMA AFTER THE FALL A MONTH AGO AND EMBOLIZATION OF SPLEEN. HIS PAIN IS ON OTHER SIDE. HE HAS TWO OLD RIB FRACTURES ON R SIDE AND 3 RECENT ONES ON L SIDE. THERE IS NO SUGGESTION TO EXPLAIN FEEVER. IT COULD BE VIRAL. HIS COVID AND FLU TEST WERE NEG AT HOME. Vital Signs/Physical Exam: Temp Pulse Resp BP Pulse Ox 98.0 F 69 14 142/75 H 98 10/11/24 08:00 10/11/24 08:00 10/11/24 08:00 10/11/24 08:00 10/11/24 08:00 Laboratory Data at Discharge: WBC 7.80 thou/uL (4.3-10.9) 10/10/24 17:50 Hgb 13.4 g/dL (13.6-17.9) L 10/10/24 17:50 Hct 38.0 % (39.6-49.0) L 10/10/24 17:50 Plt Count 75 thou/uL (152-406) L 10/10/24 17:50 PT 15.1 SECONDS (10-13.0) H 10/10/24 16:29 INR 1.34 10/10/24 16:29 APTT 33.0 SECONDS (27.2-37.4) 10/10/24 16:29 Sodium 140 mEq/L (136-145) 10/10/24 17:50 Potassium 3.5 mEq/L (3.5-5.1) 10/10/24 17:50 BUN 15 mg/dL (7-18) 10/10/24 17:50 Creatinine 0.97 mg/dL (0.70-1.30) 10/10/24 17:50 Glucose 103 mg/dL (74-106) 10/10/24 17:50 Phosphorus 1.8 mg/dL (2.5-4.9) L 10/10/24 17:50 Magnesium 1.9 mg/dL (1.6-2.4) 10/10/24 17:50 Total Bilirubin 3.8 mg/dL (0.2-1.0) H 10/10/24 17:50 AST 46 U/L (15-37) H 10/10/24 17:50 ALT 54 U/L (16-61) 10/10/24 17:50 Alkaline Phosphatase 245 U/L (45-117) H 10/10/24 17:50 Home Medications: Atorvastatin Calcium 40 mg PO BEDTIME 07/05/22 Aspirin Chewable [Aspirin Chewable*] 81 mg PO DAILY tab.chew 07/08/22 Clopidogrel Bisulfate [Plavix] 75 mg PO DAILY 90 Days #90 07/08/22 Lactobacillus Combo No.10 [Probiotic] 1 each PO DAILY 10/10/24 Magnesium Carb,Citrate,Oxide [Magnesium Complex] 1 tab PO DAILY 10/10/24 Mv-Min/Folic/K1/Lycopen/Lutein [Centrum Adults 50 Plus Minis] 1 tab PO DAILY 10/10/24 Potassium Gluconate [Potassium] 650 mg PO DAILY 10/10/24 Spironolactone 50 mg PO DAILY 10/10/24 Ubidecarenone [Co Q-10] 200 mg PO DAILY 10/10/24 Vitamin E Mixed [Vitamin E] 360 mg PO DAILY 10/10/24 Followup: Parth Lozano MD [Primary Care Provider] -
== END 2024-10-11 09:11 | disposition home or self-care (01) ==
LOC: ER 13:18 → ERHOLD 13:23 → 2ND 15:43
PROVIDERS: ADMIT Internal Medicine; ATTEND Internal Medicine
DX: R50.9 Fever, unspecified (principal); R07.81 Pleurodynia; S36.021A Major contusion of spleen, initial encounter; S22.42XA Multiple fractures of ribs, left side, initial encounter for closed fracture; L02.213 Cutaneous abscess of chest wall; W19.XXXA Unspecified fall, initial encounter
CPT/HCPCS: 36415; 71250; 74176; 80048; 80076; 81003; 82607; 82652; 83735; 84100; 84443; 85025; 85610; 85730; 87040; 87205; G0378